=== PATIENT | male | born 1940 | race Hispanic/Latino ===

== ENCOUNTER 2017-03-21 18:03 | Emergency (ER) | payer MEDICARE ==
[2017-03-21 18:27] VITALS: BP 140/72
== END 2017-03-22 01:20 | disposition left against medical advice (07) ==
LOC: ED 18:03
DX: Z76.0 Encounter for issue of repeat prescription (principal); I10 Essential (primary) hypertension; Z87.891 Personal history of nicotine dependence; Z88.5 Allergy status to narcotic agent; Z53.21 Procedure and treatment not carried out due to patient leaving prior to being seen by health care provider
CPT/HCPCS: 82962